=== PATIENT | female | born 1970 | race American Indian/Alaskan Native ===

== ENCOUNTER 2017-07-20 10:33 | Inpatient (IN) | payer MEDICARE ==
[2017-07-16 09:39] LABS: Hematocrit 35.8 % (30.3-42.9); Mean Corpuscular HGB Conc 34 % (30-34); Mean Corpuscular Volume 75 fl (79-97); Platelet Count 280 K/mm3 (140-440); Red Blood Count 4.74 M/mm3 (3.65-5.03)
[2017-07-16 09:54] LABS: Mean Corpuscular Hemoglobin 25 pg (28-32); Red Cell Distribution Width 27.5 % (13.2-15.2)
--- NOTE | 2017-07-16 09:57 | Anesthesia Consultation ---
Anesthesia Consult and Med Hx Date of service: 07/16/17 - Airway Anesthetic Teeth Evaluation: Good (overbite) ROM Head & Neck: Adequate Mental/Hyoid Distance: Adequate Mallampati Class: Class II Intubation Access Assessment: Probably Good - Pulmonary Exam CTA: Yes - Cardiac Exam Cardiac Exam: RRR - Pre-Operative Health Status ASA Pre-Surgery Classification: ASA2 Proposed Anesthetic Plan: General - Pulmonary Hx Smoking: No - Cardiovascular System Hx Hypertension: Yes (since age 32) Hx Heart Murmur: Yes - Central Nervous System Hx Psychiatric Problems: No (not diagnosed but states she has a lot of anxiety. Recently lost her sister) - Gastrointestinal Hx Gastroesophageal Reflux Disease: Yes - Endocrine Hx Renal Disease: Yes (elevated creatinine) - Hematic Hx Anemia: Yes Hx Sickle Cell Disease: No (but has Trait ) - Other Systems Hx Cancer: No
[2017-07-16 10:00] LABS: BUN/Creatinine Ratio 8; Blood Urea Nitrogen 6 mg/dL (7-17); Calcium 9.3 mg/dL (8.4-10.2); Hemolysis Index 18
[2017-07-16 11:14] LABS: Poikilocytosis 1+; Total Cells Counted 100
[2017-07-16 11:15] LABS: Anisocytosis 2+; Hypochromasia 1+; Ovalocytes Few; Tear Drop Cells Few
[2017-07-16 11:16] LABS: Large Platelets Few; Platelet Estimate Cons
--- NOTE | 2017-07-20 11:27 | History and Physical Report ---
History of Present Illness Date of examination: 07/20/17 Chief complaint: Symptomatic uterine fibroids History of present illness: Pt is a 47yo BF LMP presents for surgical evaluation and treatment of symptomatic uterine fibroids. Pelvic u/s showed an enlarged uterus 9.6 x 6.5 x 5.8cm with a fundal fibroid 5.2cm and thickened endometrium which was Negative for hyperplasia or malignancy on biopsy. She is now scheduled for a Robotic Assisted Total Hysterectomy with ovarian conservation. 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 Family/Genetic History: none Social history: no significant social history, single Medications and Allergies Allergies Allergy/AdvReac Type Severity Reaction Status Date / Time ferric carboxymaltose AdvReac Unknown Chest Verified 07/16/17 10:00 tightness Home Medications Medication Instructions Recorded Confirmed Last Taken Type Omeprazole 40 mg PO PRN PRN 07/16/17 07/16/17 Unknown History amLODIPine [Norvasc] 5 mg PO DAILY 07/16/17 07/16/17 Unknown History Review of Systems All systems: negative - Vital Signs Vital signs: Vital Signs Temp Pulse Resp BP 97.4 F L 74 18 124/80 07/16/17 09:20 07/16/17 09:20 07/16/17 09:20 07/16/17 09:20 Temp Pulse Resp BP Pulse Ox 97.4 F L 74 18 124/80 07/16/17 09:20 07/16/17 09:20 07/16/17 09:20 07/16/17 09:20 - Physical Exam Breasts: Positive: deferred Cardiovascular: Regular rate Lungs: Positive: Clear to auscultation Abdomen: Positive: normal appearance Genitourinary (Female): Positive: normal external genitalia Vagina: Positive: normal moisture Uterus: Positive: enlarged Extremities: Positive: normal Results Result Diagrams: 07/16/17 09:20 07/16/17 09:20 All other labs normal. Assessment and Plan - Patient Problems (1) Uterine fibroid Onset Date: 07/20/17 Current Visit: Yes Status: Acute Qualifiers: Uterine leiomyoma location: intramural and subserous Qualified Code(s): D25.1 - Intramural leiomyoma of uterus; D25.2 - Subserosal leiomyoma of uterus Plan to address problem: A: Symptomatic uterine fibroids P: Admit for a Robotic Assisted Total Hysterectomy with Bilateral salpingectomy
[2017-07-20] MEDS ORDERED: LACTATED RINGERS 1,000 ML IV SCH (12:00)
[2017-07-20] MEDS ORDERED: ANCEF/STERILE WATER 2 GM/20 ML 2 GM/20 ML SYRINGE IV SCH (12:00)
[2017-07-20] MEDS ORDERED: XYLOCAINE 1% 20 mL INFILTRATI NR (12:15)
[2017-07-20] MEDS ORDERED: SUBLIMAZE IV ONE (12:15)
--- NOTE | 2017-07-20 12:15 | Anesthesia Day of Surgery ---
Anesthesia Day of Surgery - Day of Surgery Patient Examined: Yes Patient H&P Reviewed: Yes Patient is NPO: Yes
[2017-07-20] MEDS ORDERED: MARCAINE 0.5% 30 ML INFILTRATI ONE (12:52)
[2017-07-20] MEDS ORDERED: MARCAINE 0.25% INFILTRATI ONE (12:52)
[2017-07-20] MEDS ORDERED: METHYLENE BLUE ONE (12:53)
[2017-07-20] MEDS ORDERED: NEOSPORIN GU IR ONE ×2 (12:53→15:25)
[2017-07-20] MEDS ORDERED: MARCAINE-EPI 0.5%-1:200,000 INFILTRATI ONE (12:53)
[2017-07-20] MEDS ORDERED: NACL P/F VIAL (10 ML) INFILTRATI NR (13:00)
[2017-07-20] MEDS ORDERED: PEPCID IV NR (13:00)
[2017-07-20] MEDS ORDERED: MARCAINE 0.5% INFILTRATI NR (13:00)
[2017-07-20] MEDS ORDERED: VERSED IV NR (13:00)
[2017-07-20] MEDS ORDERED: XYLOCAINE MPF 2% ONE (13:18)
[2017-07-20] MEDS ORDERED: DIPRIVAN 10 MG/ML IV ONE (13:18)
[2017-07-20] MEDS ORDERED: ZEMURON IV ONE (13:18)
[2017-07-20] MEDS ORDERED: DILAUDID ONE (13:18)
[2017-07-20] MEDS ORDERED: ZOFRAN ONE (15:07)
[2017-07-20] MEDS ORDERED: NACL 0.9% IR ONE ×2 (15:25→15:26)
[2017-07-20] MEDS ORDERED: WATER FOR IRRIG STERILE IR ONE (15:26)
[2017-07-20] MEDS ORDERED: NEOSTIGMINE ONE (15:35)
[2017-07-20] MEDS ORDERED: ROBINUL ONE (15:35)
[2017-07-20] MEDS ORDERED: MILK OF MAGNESIA PO PRN (15:50)
[2017-07-20] MEDS ORDERED: NORCO 5/325 PO PRN (15:50)
[2017-07-20] MEDS ORDERED: REGLAN IV PRN (15:50)
[2017-07-20] MEDS ORDERED: NARCAN 0.4 MG/1 ML IV PRN (15:50)
[2017-07-20] MEDS ORDERED: TYLENOL PO PRN (15:50)
[2017-07-20] MEDS ORDERED: ZOFRAN IV PRN ×2 (15:50→17:01)
[2017-07-20] MEDS ORDERED: PERCOCET 5/325 PO PRN (15:50)
[2017-07-20] MEDS ORDERED: D5LR 1,000 ML IV SCH (16:00)
--- NOTE | 2017-07-20 16:13 | Operative Report ---
Operative Report Operative Report: Date of procedure: 07/20/2017 Pre-operative diagnosis: 1. Symptomatic uterine fibroids Post-operative diagnosis: Same with extensive pelvic adhesions Procedure name(s): 1. Robotic-assisted total hysterectomy 2. Bilateral salpingectomy 3. Lysis of extensive pelvic adhesions Surgeon: Raghu Anglin MD Machine Attendant: Lobo Babcock CSA Anesthesia: GELA Block followed by general endotracheal intubation by Dr. Mackey EBL: 80 mL's Findings: A 10 -12 week size multi-myomatous uterus with tubes showed evidence of previous tubal ligation bilaterally, and normal ovaries bilaterally. Extensive omental adhesions to the anterior abdominal wall, and the uterine fundus. Procedure: After the patient's first correctly identified she was prepped and draped in the usual sterile fashion and placed in the dorsolithotomy position. The bladder was first catheterized using Haas catheter and the speculum was placed in the vagina and the anterior lip of the cervix was grasped using a single-tooth tenaculum, and the medium Vesicare cup was placed. The tenaculum and speculum was then removed from the vagina and attention was then turned to the abdomen. The skin knife was used to make a small incision approximately 5 cm above the umbilicus through which a 12 mm trocar was placed under direct visualization. After adequate amount of abdominal insufflation visualization the entire pelvis was obscured by omentum adhesions. After the adhesion was taken down, visualization of the pelvic organs found the uterus to be enlarged and the tubes showed evidence of previous tubal ligation bilaterally and the ovaries were found to be normal bilaterally. A right and left paramedian incision was made through which the 8 mm trochars were placed under direct visualization and a 5 mm trocar was placed in the right lower quadrant. The patient was then placed in steep Trendelenburg positioning and the robot was docked on the patient's left side. After all the robotic ports were connected and adequate functioning of the robotic arms were tested the surgeon then proceeded to the console to begin the hysterectomy. First the left round ligament was grasped, cauterized and cut, the left utero- ovarian ligaments were grasped, cauterized and cut, and the left fallopian tube also grasped, cauterized and cut along the mesosalpinx, thus freeing the left ovary from the left uterine sidewall. The same procedure was performed on the right. The right round ligament was grasped, cauterized and cut, the right utero-ovarian ligaments were grasped, cauterized and cut, and the right fallopian tube also grasped, cauterized and cut along the mesosalpinx, thus freeing the right ovary from the right uterine sidewall. The bladder flap was taken down anteriorly and the uterine vessels were grasped, cauterized and cut bilaterally. The cardinal ligaments were sequentially grasped, cauterized and cut down to the level of the uterosacral ligaments. At this time the posterior colpotomy was performed over the Vcare cup, and the cervix was circumscribed beginning posteriorly and meeting anteriorly until the cervix was freed. The cervix and uterus was then removed through the vagina and sent to pathology. The vaginal cuff was then closed using 2-0 Vloc suture in a running fashion. Irrigation was then performed and after good hemostasis was achieved the procedure was considered complete. The Tisseel sealant was then sprayed across the vaginal cuff site, and after excellent hemostasis was assured Interceed was placed across the vaginal cuff site. All instruments were then removed from the abdominal cavity. And each incision was closed using 0 Vicryl suture in a [id number] configuration on the fascia followed by 4-0 Monocryl suture in a subcuticular fashion on the skin. Each incision was also infiltrated using 0.5% Marcaine solution. The vaginal pack was removed. The patient tolerated the procedure well and was transported to the recovery room in stable condition.
[2017-07-20] MEDS ORDERED: DEMEROL IV PRN (17:01)
[2017-07-20] MEDS ORDERED: DILAUDID IV PRN (17:01)
--- NOTE | 2017-07-20 17:02 | Post Anesthesia Evaluation ---
- Post Anesthesia Evaluation Airway Patent: Yes Stable Respiratory Function: Yes Nausea/Vomiting: No Temp > 96.8F: Yes Pain Manageable: Yes Adequeate Hydration: Yes Anesthesia Complications: No Block Receding Appropriately: No Patient on Ventilator: No
[2017-07-20] MEDS ORDERED: CHLORASEPTIC MM PRN (21:49)
[2017-07-20] MEDS ORDERED: ANCEF/NS 1 GM/50 ML 1 GM/50 ML BAG IV SCH (22:00)
[2017-07-20] MEDS: TORADOL IV SCH (22:30)
[2017-07-20] MEDS: ceFAZolin 1 GM in NACL 0.9% 20 ML IV SCH (22:30)
[2017-07-20] MEDS: COLACE PO SCH (22:30)
[2017-07-20] MEDS: XANAX PO SCH (22:30)
[2017-07-21] MEDS: XANAX PO SCH ×2 (01:30→10:45)
[2017-07-21] MEDS: TORADOL IV SCH ×2 (04:10→10:45)
[2017-07-21 05:24] LABS: Hematocrit 35.2 % (30.3-42.9)
[2017-07-21] MEDS: ceFAZolin 1 GM in NACL 0.9% 20 ML IV SCH (06:15)
--- NOTE | 2017-07-21 09:08 | Progress Note ---
Assessment and Plan - Patient Problems (1) Uterine fibroid Onset Date: 07/20/17 Current Visit: Yes Status: Resolved Qualifiers: Uterine leiomyoma location: intramural and subserous Qualified Code(s): D25.1 - Intramural leiomyoma of uterus; D25.2 - Subserosal leiomyoma of uterus (2) Status post robot-assisted surgical procedure Onset Date: 07/21/17 Current Visit: Yes Status: Resolved Plan to address problem: A: S/P RATH - POD #1 Doing well P: May go home today Subjective - Subjective Date of service: 07/21/17 Principal diagnosis: s/p RATH - POD #1 Interval history: Pt is feeling well s/p a Robotic Assisted Total Hysterectomy with Bilateral Salpingectomy. She is tolerating a liquid diet without nausea or vomiting, ambulating and voiding without difficulty. Patient reports: appetite normal, voiding normally, pain well controlled, flatus , ambulating normally, no dizzy ambulation, no nauseated Objective - Vital Signs Latest vital signs: Vital Signs Temp Pulse Resp BP BP Pulse Ox 07/21/17 04:05 98.2 F 102 H 20 129/75 07/21/17 00:00 98.2 F 121 H 20 146/84 07/20/17 22:30 18 07/20/17 20:10 97.8 F 116 H 20 141/84 07/20/17 18:48 97.9 F 105 H 20 131/76 99 07/20/17 18:10 97.3 F L 92 H 20 134/81 99 07/20/17 17:54 14 07/20/17 17:45 97.3 F L 91 H 14 152/86 100 07/20/17 17:30 81 13 158/78 100 07/20/17 17:24 15 07/20/17 17:15 99 H 13 152/77 100 07/20/17 17:00 91 H 13 146/83 98 07/20/17 16:45 114 H 13 157/86 98 07/20/17 16:30 130 H 13 131/95 100 07/20/17 16:25 128 H 12 154/91 100 07/20/17 16:20 137 H 17 178/98 99 07/20/17 16:15 137 H 14 168/101 97 07/20/17 12:55 16 07/20/17 12:53 81 13 141/88 100 07/20/17 12:48 79 12 147/78 100 07/20/17 12:43 88 12 147/78 100 07/20/17 12:37 83 16 137/78 100 07/20/17 12:20 97.9 F 81 16 141/88 100 07/20/17 11:34 97.9 F 71 14 118/76 100 Intake and Output 07/20/17 07/21/17 07/21/17 22:59 06:59 14:59 Intake Total 1300 480 Output Total 425 1500 Balance 875 -1020 Intake: IV 1300 Oral 480 Output: Urine 425 1500 Indwelling Catheter 225 1500 Other: Total, Intake Amount 240 Total, Output Amount 225 1100 Voiding Method Indwelling Catheter - Exam Breasts: Present: deferred Cardiovascular: Present: Regular rate Lungs: Present: Clear to auscultation Abdomen: Present: normal appearance, soft Extremities: Present: normal Incision: Present: normal, dry, intact - Labs Labs: Laboratory Tests 07/16/17 07/16/17 07/16/17 09:20 09:20 09:20 WBC 3.7 L RBC 4.74 Hgb 12.0 Hct 35.8 MCV 75 L MCH 25 L MCHC 34 RDW 27.5 H Plt Count 280 Add Manual Diff Complete Total Counted 100 Seg Neuts % (Manual) 43.0 Band Neutrophils % 0 Lymphocytes % (Manual) 44.0 H Reactive Lymphs % (Man) 1.0 Monocytes % (Manual) 10.0 H Eosinophils % (Manual) 1.0 Basophils % (Manual) 1.0 Metamyelocytes % 0 Myelocytes % 0 Promyelocytes % 0 Blast Cells % 0 Nucleated RBC % Not Reportable Seg Neutrophils # Man 1.6 L Band Neutrophils # 0.0 Lymphocytes # (Manual) 1.6 Abs React Lymphs (Man) 0.0 Monocytes # (Manual) 0.4 Eosinophils # (Manual) 0.0 Basophils # (Manual) 0.0 Metamyelocytes # 0.0 Myelocytes # 0.0 Promyelocytes # 0.0 Blast Cells # 0.0 WBC Morphology Not Reportable Hypersegmented Neuts Not Reportable Hyposegmented Neuts Not Reportable Hypogranular Neuts Not Reportable Smudge Cells Not Reportable Toxic Granulation Not Reportable Toxic Vacuolation Not Reportable Dohle Bodies Not Reportable Pelger-Huet Anomaly Not Reportable Walter Rods Not Reportable Platelet Estimate Cons Clumped Platelets Not Reportable Plt Clumps, EDTA Not Reportable Large Platelets Few Giant Platelets Not Reportable Platelet Satelliting Not Reportable Plt Morphology Comment Not Reportable RBC Morphology Not Reportable Dimorphic RBCs Not Reportable Polychromasia Not Reportable Hypochromasia 1+ Poikilocytosis 1+ Anisocytosis 2+ Microcytosis Not Reportable Macrocytosis Not Reportable Spherocytes Not Reportable Pappenheimer Bodies Not Reportable Sickle Cells Not Reportable Target Cells Not Reportable Tear Drop Cells Few Ovalocytes Few Helmet Cells Not Reportable [place] Bodies Not Reportable [place] Not Reportable [place] Cells Not Reportable Bite Cells Not Reportable Crenated Cell Not Reportable Elliptocytes Not Reportable Acanthocytes (Spur) Not Reportable Rouleaux Not Reportable Hemoglobin C Crystals Not Reportable Schistocytes Not Reportable Malaria parasites Not Reportable Pola Bodies Not Reportable Hem Pathologist Commnt No Sodium 137 Potassium 3.7 Chloride 99.2 Carbon Dioxide 24 Anion Gap 18 BUN 6 L Creatinine 0.8 Estimated GFR > 60 BUN/Creatinine Ratio 8 Glucose 78 POC Glucose Calcium 9.3 HCG, Qual Negative Blood Type Antibody Screen 07/20/17 07/20/17 07/21/17 11:45 16:28 04:45 WBC RBC Hgb 12.0 Hct 35.2 MCV MCH MCHC RDW Plt Count Add Manual Diff Total Counted Seg Neuts % (Manual) Band Neutrophils % Lymphocytes % (Manual) Reactive Lymphs % (Man) Monocytes % (Manual) Eosinophils % (Manual) Basophils % (Manual) Metamyelocytes % Myelocytes % Promyelocytes % Blast Cells % Nucleated RBC % Seg Neutrophils # Man Band Neutrophils # Lymphocytes # (Manual) Abs React Lymphs (Man) Monocytes # (Manual) Eosinophils # (Manual) Basophils # (Manual) Metamyelocytes # Myelocytes # Promyelocytes # Blast Cells # WBC Morphology Hypersegmented Neuts Hyposegmented Neuts Hypogranular Neuts Smudge Cells Toxic Granulation Toxic Vacuolation Dohle Bodies Pelger-Huet Anomaly Walter Rods Platelet Estimate Clumped Platelets Plt Clumps, EDTA Large Platelets Giant Platelets Platelet Satelliting Plt Morphology Comment RBC Morphology Dimorphic RBCs Polychromasia Hypochromasia Poikilocytosis Anisocytosis Microcytosis Macrocytosis Spherocytes Pappenheimer Bodies Sickle Cells Target Cells Tear Drop Cells Ovalocytes Helmet Cells [place] Bodies [place] Cells Bite Cells Crenated Cell Elliptocytes Acanthocytes (Spur) Rouleaux Hemoglobin C Crystals Schistocytes Malaria parasites Pola Bodies Hem Pathologist Commnt Sodium Potassium Chloride Carbon Dioxide Anion Gap BUN Creatinine Estimated GFR BUN/Creatinine Ratio Glucose POC Glucose 70 Calcium HCG, Qual Blood Type B POSITIVE Antibody Screen Negative
[2017-07-21] MEDS: COLACE PO SCH (10:00)
--- NOTE | 2017-07-21 12:47 | Discharge Summary ---
Providers - Providers Date of Admission: 07/20/17 15:50 Date of discharge: 07/21/17 Attending physician: STEFFEN GUPTA Primary care physician: JOSELITO GONSALES Hospitalization Reason for admission: other (Symptomatic uterine fibroids) Procedure: other (Robotic Assisted Total Hysterectomy) Incision: normal, dry Other procedures: none complications: none Discharge diagnosis: other (s/p RATH - Doing well) Hospital course: Pt is a 47yo BF LMP 06/06/17 presented for surgical evaluation and treatment of symptomatic uterine fibroids. Pelvic u/s showed an enlarged uterus 9.6 x 6.5 x 5.8cm with a fundal fibroid 5.2cm and thickened endometrium which was Negative for hyperplasia or malignancy on biopsy. She underwent an uncomplicated Robotic Assisted Total Hysterectomy with Bilateral Salpingectomy, and tolerated the procedure well. By POD #1 she was tolerating a reg diet without nausea or vomiting, ambulating and voiding without difficulty. She was therefore discharged to home on POD #1 in stable condition. Condition at discharge: Good Disposition: DC-01 TO HOME OR SELFCARE - Discharge Diagnoses (1) Uterine fibroid Status: Resolved Qualifiers: Uterine leiomyoma location: intramural and subserous Qualified Code(s): D25.1 - Intramural leiomyoma of uterus; D25.2 - Subserosal leiomyoma of uterus (2) Status post robot-assisted surgical procedure Status: Resolved Plan - Discharge Medications Prescriptions: ALPRAZolam [Xanax TAB] 1 mg PO BID #60 tablet HYDROcodone/APAP 5-325 [[place] 5-325 mg TAB] 1 each PO Q6HR PRN #30 tablet PRN Reason: Pain, Moderate (4-6) Ibuprofen [Motrin] 800 mg PO Q8HR PRN #30 tablet PRN Reason: Moder Pain Unrelieved By [place] - Provider Discharge Summary Activity: routine, no sex for 6 weeks, no heavy lifting 4 weeks, no strenuous exercise Diet: routine Instructions: routine Additional instructions: [] Smoking cessation referral if applicable(refer to patient education folder for contact #) [] Refer to [facility] Booklet Call your doctor immediately for: * Fever > 100.5 * Heavy vaginal bleeding ( >1 pad per hour) * Severe persistent headache * Shortness of breath * Reddened, hot, painful area to leg or breast * Drainage or odor from incision. * Keep incision clean and dry at all times and follow doctor's instructions regarding bathing/showering - Follow up plan Follow up: JOSELITO GONSALES MD [Primary Care Provider] - 7 Days STEFFEN GUPTA MD [Staff Physician] - 14 Days
[2017-07-21 15:17] VITALS: BP 134/79
== END 2017-07-21 13:50 | disposition home or self-care (01) | DRG 743 ==
LOC: OR 10:33 → OB 15:50
PROVIDERS: ADMIT Obstetrics & Gynecology; ATTEND Obstetrics & Gynecology
PROC: 0UT94ZZ Resection of Uterus, Percutaneous Endoscopic Approach (ICD-10-PCS; principal; 2017-07-20)
PROC: 8E0W4CZ Robotic Assisted Procedure of Trunk Region, Percutaneous Endoscopic Approach (ICD-10-PCS; 2017-07-20)
PROC: 0DNU4ZZ Release Omentum, Percutaneous Endoscopic Approach (ICD-10-PCS; 2017-07-20)
PROC: 0UB74ZZ Excision of Bilateral Fallopian Tubes, Percutaneous Endoscopic Approach (ICD-10-PCS; 2017-07-20)
DX: D25.1 Intramural leiomyoma of uterus (principal); I10 Essential (primary) hypertension; K21.9 Gastro-esophageal reflux disease without esophagitis; N73.6 Female pelvic peritoneal adhesions (postinfective); Z79.899 Other long term (current) drug therapy
CPT/HCPCS: 36415; 64450; 80048; 82962; 84703; 85007; 85014; 85018; 85025; 86850; 86900; 86901; 88302; 88305; 88307; A4217; C1765; C9250; J0690; J1170; J1885; J2250; J2405; J2704; J2710; J2765; J3010; J7120; J7121; Q9968

== ENCOUNTER 2017-11-17 11:06 | Outpatient (CLI) | payer MEDICARE ==
[2017-11-17 11:52] LABS: Bilirubin,Urine NEG (Negative); Blood,Urine NEG (Negative); Color,Urine Yellow (Yellow); Protein,Urine <15 mg/dL mg/dL (Negative); RBC,Urine < 1.0 /HPF (0.0-6.0); Urobilinogen,Urine < 2.0 mg/dL (<2.0)
[2017-11-17 11:56] LABS: WBC,Urine < 1.0 /HPF (0.0-6.0)
[2017-11-17 12:17] LABS: Albumin 3.6 g/dL (3.9-5); BUN/Creatinine Ratio 12; Blood Urea Nitrogen 12 mg/dL (7-17); Calcium 9.4 mg/dL (8.4-10.2); Hemolysis Index 3
--- NOTE | 2017-11-17 15:22 | Nuclear Medicine Report ---
NUCLEAR MEDICINE PARATHYROID SCAN: History: Hypercalcemia. FINDINGS: The initial scintigraphic images of the thyroid bed demonstrate normal and symmetric uptake of the radiotracer in the thyroid bed. Normal salivary and mediastinal activity is identified. The delayed images demonstrate normal washout of the radiotracer from the thyroid bed. No persistent activity is identified to suggest a parathyroid adenoma. IMPRESSION: Normal parathyroid scan.
[2017-11-17 20:34] LABS: Hepatitis A Antibody IgM Non-Reactive (NonReactive); Hepatitis B Core IgM Non-Reactive (NonReactive); Hepatitis B Surface Antigen Non-Reactive (Negative); Hepatitis C Virus Antibody Non-Reactive (NonReactive)
--- NOTE | 2017-11-18 07:20 | Ultrasound Report ---
ULTRASOUND RENAL BILATERAL HISTORY: Abnormal kidney function. TECHNIQUE: transabdominal ultrasound with color Doppler interrogation. COMPARISON: none. FINDINGS: The right kidney measures 9.0cm. Right renal cortex: 1.1cm. The left kidney measures 10.4cm. Left renal cortex: 1.3cm. The kidneys are normal size, contour and position. There is increased renal parenchymal echotexture bilaterally. Corticomedullary differentiation is preserved. No evidence for cystic disease, mass, nephrolithiasis, hydronephrosis or perinephric fluid. The views of the bladder and the region of the ureters appear normal. IMPRESSION: Renal parenchymal disease.
== END 2017-11-17 11:07 | disposition home or self-care (01) ==
LOC: NM 11:06
PROVIDERS: ATTEND Internal Medicine Nephrology
DX: I10 Essential (primary) hypertension (principal); E78.5 Hyperlipidemia, unspecified; D64.9 Anemia, unspecified; E83.52 Hypercalcemia; K21.9 Gastro-esophageal reflux disease without esophagitis; R94.4 Abnormal results of kidney function studies; Z98.890 Other specified postprocedural states
CPT/HCPCS: 36415; 76770; 78070; 80048; 80074; 81001; 82040; 82306; 82652; 84100; 84165; 84166; 86225; A9500